=== PATIENT | male | born 1950 | race African-American/Black ===

== ENCOUNTER 2017-11-06 10:19 | Emergency (ER) | payer SELFPAY ==
[~2017-11-06] VITALS: Ht 185.4 cm; Wt 90.0 kg
[2017-11-06 12:23] LABS: HEMATOCRIT. 39.4 % (42.0-52.0); HEMOGLOBIN. 13.3 g/dL (14.0-18.0); MEAN CORPUSCULAR HEMOGLOBIN 33.8 pg (28.0-32.0); MEAN CORPUSCULAR VOLUME 99.8 fL (80.0-94.0); MEAN PLATELET VOLUME 7.8 fl (7.4-10.4); PLATELET 157 x1000/uL (130-400); RED BLOOD CELL COUNT 3.95 mill/uL (4.7-6.1); RED CELL DISTRIBUTION WIDTH 13.5 % (11.6-14.6)
[2017-11-06 12:26] LABS: CHLORIDE 109 mEq/L (98-107)
[2017-11-06 12:30] LABS: ETHANOL BLOOD 197 mg/dL
[2017-11-06 12:43] VITALS: BP 158/99
[2017-11-06 12:47] LABS: PLATELET ESTIMATE NORMAL
[2017-11-06 13:02] LABS: CLARITY URINE CLEAR (CLEAR); COLOR URINE YELLOW (YELLOW); KETONES URINE NEGATIVE (NEGATIVE); LEUKOCYTE ESTERASE URINE NEGATIVE (NEGATIVE); NITRITE URINE NEGATIVE (NEGATIVE); OCCULT BLOOD URINE NEGATIVE (NEGATIVE); PH URINE 5.5 (4.5-8.0); PROTEIN URINE NEGATIVE (NEGATIVE); SPECIFIC GRAVITY URINE 1.011 (1.005-1.030); UROBILINOGEN URINE 0.2 E.U./dL (0.2-1.0)
[2017-11-06 13:27] LABS: *AMPHETAMINES SCREEN URINE NEGATIVE (NEGATIVE); *BARBITURATES SCREEN URINE NEGATIVE (NEGATIVE); *BENZODIAZEPINES SCREEN URINE NEGATIVE (NEGATIVE); *COCAINE SCREEN URINE NEGATIVE (NEGATIVE); CANNABINOID URINE SCREEN NEGATIVE (NEGATIVE); PHENCYCLIDINE URINE SCREEN NEGATIVE (NEGATIVE)
[2017-11-06 13:28] LABS: METHADONE URINE SCREEN NEGATIVE (NEGATIVE); OPIATES URINE SCREEN NEGATIVE (NEGATIVE)
[2017-11-06] MEDS ORDERED: SODIUM CHLORIDE 0.9% 1,000 ML IV ONE (13:30)
== END 2017-11-06 15:12 | disposition left against medical advice (07) ==
LOC: ER 10:19
DX: F10.129 Alcohol abuse with intoxication, unspecified (principal); Y90.6 Blood alcohol level of 120-199 mg/100 ml
CPT/HCPCS: 36415; 70450; 71045; 80053; 80305; 80307; 80329; 81003; 82962; 85025; 96360; 99285; G0482; J7030

== ENCOUNTER 2018-08-25 09:59 | Emergency (ER) | payer SELFPAY ==
[~2018-08-25] VITALS: Ht 185.4 cm; Wt 100.0 kg
[2018-08-25] MEDS ORDERED: HYDROCODONE/ACETAMINOPHEN 5/325MG TABLET PO ONE (10:45)
[2018-08-25 11:51] LABS: HEMATOCRIT. 31.4 % (42.0-52.0); HEMOGLOBIN. 10.7 g/dL (14.0-18.0); MEAN CORPUSCULAR HEMOGLOBIN 33.8 pg (28.0-32.0); MEAN CORPUSCULAR VOLUME 99.4 fL (80.0-94.0); MEAN PLATELET VOLUME 7.6 fl (7.4-10.4); PLATELET 219 x1000/uL (130-400); RED BLOOD CELL COUNT 3.16 mill/uL (4.7-6.1); RED CELL DISTRIBUTION WIDTH 13.1 % (11.6-14.6)
[2018-08-25 11:56] LABS: CHLORIDE 110 mEq/L (98-107)
[2018-08-25 11:58] LABS: INR 1.2
[2018-08-25 12:32] VITALS: BP 132/93
[2018-08-25 13:00] LABS: CLARITY URINE CLEAR (CLEAR); COLOR URINE DARK YELLOW (YELLOW); KETONES URINE TRACE (NEGATIVE); LEUKOCYTE ESTERASE URINE 1+ (NEGATIVE); NITRITE URINE NEGATIVE (NEGATIVE); OCCULT BLOOD URINE NEGATIVE (NEGATIVE); PH URINE 5.5 (4.5-8.0); PROTEIN URINE TRACE (NEGATIVE); SPECIFIC GRAVITY URINE 1.038 (1.005-1.030)
[2018-08-25 13:11] LABS: PLATELET ESTIMATE NORMAL
== END 2018-08-25 15:34 | disposition left against medical advice (07) ==
LOC: ER 09:59
DX: L03.116 Cellulitis of left lower limb (principal); L03.115 Cellulitis of right lower limb; Z98.890 Other specified postprocedural states
CPT/HCPCS: 36415; 71045; 83880; 84484; 93005; 93970; 99284

== ENCOUNTER 2018-08-26 11:56 | Emergency (ER) | payer SELFPAY ==
[~2018-08-26] VITALS: Ht 180.3 cm; Wt 89.0 kg
[2018-08-26] MEDS ORDERED: CEFTRIAXONE SODIUM 1 G/VIAL IM ONE (12:15)
[2018-08-26] MEDS ORDERED: LIDOCAINE HCL 1% 20ML VIAL (Pyxis) INJ INFIL ONE (12:15)
[2018-08-26 12:23] VITALS: BP 146/84
== END 2018-08-26 14:44 | disposition home or self-care (01) ==
LOC: ER 12:44
DX: L03.115 Cellulitis of right lower limb (principal); I11.0 Hypertensive heart disease with heart failure; I50.30 Unspecified diastolic (congestive) heart failure; F20.9 Schizophrenia, unspecified
CPT/HCPCS: 96372; 99283; J0696; J3490

== ENCOUNTER 2018-08-26 19:04 | Emergency (ER) | payer SELFPAY ==
[~2018-08-26] VITALS: Ht 180.3 cm; Wt 92.0 kg
[2018-08-26 19:05] VITALS: BP 138/80
== END 2018-08-26 21:15 | disposition left against medical advice (07) ==
LOC: ER 20:23
DX: Z53.21 Procedure and treatment not carried out due to patient leaving prior to being seen by health care provider (principal)

== ENCOUNTER 2019-05-26 00:16 | Emergency (ER) | payer MEDICAID ==
[~2019-05-26] VITALS: Ht 188 cm; Wt 78.0 kg
[2019-05-26 01:26] LABS: EOSINOPHILS % 1.6 % (0.0-5.0); HEMOGLOBIN. 13.3 g/dL (14.0-18.0); LYMPHOCYTES % 38.3 % (20.0-50.0); MEAN CORPUSCULAR HEMOGLOBIN 33.5 pg (28.0-32.0); MEAN CORPUSCULAR VOLUME 97.8 fL (80.0-94.0); MEAN PLATELET VOLUME 8.2 fl (7.4-10.4); MONOCYTES % 13.8 % (2.0-8.0); NEUTROPHILS % 45.3 % (40.0-76.0); PLATELET 171 x1000/uL (130-400); RED BLOOD CELL COUNT 3.99 mill/uL (4.7-6.1); RED CELL DISTRIBUTION WIDTH 13.6 % (11.6-14.6)
[2019-05-26 01:37] LABS: CHLORIDE 116 mEq/L (98-107)
[2019-05-26 01:41] LABS: ETHANOL BLOOD < 10 mg/dL
[2019-05-26 01:44] LABS: *AMPHETAMINES SCREEN URINE NEGATIVE (NEGATIVE); *BARBITURATES SCREEN URINE NEGATIVE (NEGATIVE)
[2019-05-26 01:45] LABS: *BENZODIAZEPINES SCREEN URINE NEGATIVE (NEGATIVE); *COCAINE SCREEN URINE NEGATIVE (NEGATIVE); CANNABINOID URINE SCREEN NEGATIVE (NEGATIVE); METHADONE URINE SCREEN NEGATIVE (NEGATIVE); OPIATES URINE SCREEN NEGATIVE (NEGATIVE); PHENCYCLIDINE URINE SCREEN NEGATIVE (NEGATIVE)
[2019-05-26 02:00] LABS: COLOR URINE YELLOW (YELLOW)
[2019-05-26 02:01] LABS: CLARITY URINE CLOUDY (CLEAR); KETONES URINE TRACE (NEGATIVE); NITRITE URINE POSITIVE (NEGATIVE); OCCULT BLOOD URINE NEGATIVE (NEGATIVE); PH URINE 6.5 (4.5-8.0); PROTEIN URINE TRACE (NEGATIVE); SPECIFIC GRAVITY URINE 1.028 (1.005-1.030)
[2019-05-26 02:02] LABS: LEUKOCYTE ESTERASE URINE 3+ (NEGATIVE)
[2019-05-26] MEDS ORDERED: OLANZAPINE 10MG TABLET PO SCH (02:30)
[2019-05-26] MEDS ORDERED: CEPHALEXIN 250MG CAPSULE PO ONE (02:30)
[2019-05-26] MEDS ORDERED: SODIUM CHLORIDE 0.9% 1,000 ML IV ONE (02:44)
[2019-05-26] MEDS ORDERED: CEFTRIAXONE 1 G PREMIX 50 ML IV ONE (02:45)
[2019-05-27 18:25] VITALS: BP 138/89
== END 2019-05-27 20:26 | disposition home or self-care (01) ==
LOC: ER 00:48
DX: F20.9 Schizophrenia, unspecified (principal); I10 Essential (primary) hypertension
CPT/HCPCS: 36415; 70450; 80048; 80305; 80307; 80320; 80329; 81003; 85025; 87077; 87086; 87186; 96374; 99285; J0696; J7030; Z7610; G0480

== ENCOUNTER 2019-09-26 23:22 | Emergency (ER) | payer SELFPAY ==
[~2019-09-26] VITALS: Ht 190.5 cm; Wt 78.0 kg
[2019-09-27 00:03] VITALS: BP 118/54
== END 2019-09-27 01:01 | disposition left against medical advice (07) ==
LOC: ER 23:22
DX: Z53.21 Procedure and treatment not carried out due to patient leaving prior to being seen by health care provider (principal)

== ENCOUNTER 2020-07-23 21:39 | Emergency (ER) | payer MEDICAID ==
[~2020-07-23] VITALS: Ht 182.9 cm; Wt 90.0 kg
[2020-07-23 21:45] VITALS: BP 152/84
== END 2020-07-24 00:59 | disposition left against medical advice (07) ==
LOC: ER 21:39
DX: Z53.21 Procedure and treatment not carried out due to patient leaving prior to being seen by health care provider (principal)